=== PATIENT | male | born 1945 | race Caucasian/White ===

== ENCOUNTER 2017-12-08 13:41 | Outpatient (RCR) | payer MEDICARE ==
[~2017-12-08] VITALS: Ht 177.8 cm; Wt 96.6 kg
[~2017-12-08 13:41] MED LIST: GLIP-137 PO; MET500 PO; NO RTN MEDS
--- NOTE | 2017-12-08 17:05 | Medical Nutrition Therapy ---
Nutrition Anthropometrics Height (Inches): 70 Weight (Pounds): 213 (stated) Phan Nutrition Score: Phan Nutrition Risk Score: Dietary Referral Nutrition Risk Factors: Nutrition Risk Comment: Nutrition/Food History Breakfast: cherios, milk, fruit, coffee with farzad creamer Lunch: skips or sandwich Dinner: meat, 1c starch, veg, 1c milk, 1/2c fruit` Snacks: 9:30 amd egg, sausage or waffel with honey Nutritional Education Nutrition Education Topic: Diabetic Nutrition Learning Readiness: Interested Teaching Methods: Discussion, Handout, Demonstration Response to Teaching: Verbalize understanding, Reinforcement needed Teaching Recipient: Patient Nutrition Counseling: Pt states concerned with high A1C and would like to get it conrolled. Pt is on glipizide, meformin, Lantus and novolog. Pt states usually doesn't take novolog as he didn't think since it was a small amount, it wouldn't do that much good. Discussed the action of his oral med and the difference between lantus and novolog. Encouraged pt to take his novolog with his meals. Discused glycemic reponse to CHO. Many of the CHO pt is eating has a high glycemic index. Reviewed quality vs quantitiy of CHO. Pt is interested in wt loss. Reviewed CHO counting vs plate method. Recommend pt limit CHO or 30-45gm/meal or ~ 1c /meal to assist with wt loss. Pt states he is planning to go to rec center 3X//week to help with wt loss. Pt made behavioural goals and support plan. Pt scheduled for [facility] classes. Nutrition Monitoring & Eval Nutritional Goals Comment: Pt set behavioural goal of 20# wt loss in 5 month with action steps of exercising minimum of 1 hr 3X/week and limiting CHO to 30-45gm/meal. RD Patient Assessment Time: 60 minutes Nutritional Comment: Provide 60 minutes diabetic education focusing on nutrion, action of insulin, behavioural goal and support plan. Copies To Copies to: JONATAN PISANO BETH Dec 08, 2017 17:05
--- NOTE | 2017-12-16 17:59 | Medical Nutrition Therapy ---
Nutrition Anthropometrics Height (Inches): 70 Weight (Pounds): 213 (stated) Phan Nutrition Score: Phan Nutrition Risk Score: Dietary Referral Nutrition Risk Factors: Nutrition Risk Comment: Nutritional Education Nutrition Education Topic: Other Learning Barriers: Hx Of Non-Compliance Learning Readiness: Interested Teaching Methods: Discussion, Demonstration Response to Teaching: Verbalize understanding Teaching Recipient: Patient Nutrition Monitoring & Eval RD Patient Assessment Time: [address] Assessment Type: RD Education Nutritional Comment: Provide 60 minutes diabetic education focusing on nutrion, action of insulin, behavioural goal and support plan. 12/16/17 Pt has had T2DM for 15-20 years. Recent A1C 9.0%. Pt instructed on Living with Diabetes topics including foot care, manager long term care complications, exercise, hypoglycemia, sick day care, etc. Pt appears interested in diabetes topics and able to answer questions regarding topics covered. I personally spent a total of 60 minutes educating/counseling patient regarding diabetes self-management in a group setting. See education section and my note above for details. Copies To Copies to: JONATAN PISANO DIANNE Dec 16, 2017 17:59
--- NOTE | 2018-01-01 10:39 | Medical Nutrition Therapy ---
Nutritional Education Nutrition Education Topic: Diabetic Nutrition Learning Readiness: Interested Teaching Methods: Discussion, Handout, Demonstration Response to Teaching: Verbalize understanding Teaching Recipient: Patient Nutrition Counseling: Provided group diabetes education on nutrition. Reviewed: process of digestion; function of CHO, protein and fat; glycemic index; reading labels, portion sizes; heart healthy intake; eating out, alcohol. Nutrition Monitoring & Eval RD Patient Assessment Time: [address] Assessment Type: RD Education Nutritional Comment: Provide 60 minutes diabetic education in a group setting focusing on nutrion. 4 Copies To Copies to: JONATAN PISANO BETH Jan 01, 2018 10:39
== END 2018-01-12 ==
LOC: DIET 13:41
PROVIDERS: ATTEND Family Medicine
DX: Z71.3 Dietary counseling and surveillance (principal); E11.65 Type 2 diabetes mellitus with hyperglycemia; Z79.4 Long term (current) use of insulin; Z79.84 Long term (current) use of oral hypoglycemic drugs
CPT/HCPCS: G0108; G0109

== ENCOUNTER 2018-03-20 11:41 | Emergency (ER) | payer MEDICARE ==
[~2018-03-20 11:41] MED LIST changes: -ASPI-757 PO; -NOVOLOG SUBQ
--- NOTE | 2018-03-20 11:44 | ER Report ---
History and Physical Time Seen By MD: 11:43 HPI/ROS CHIEF COMPLAINT: feeling faint, nausea, possible heat exhaustion HISTORY OF PRESENT ILLNESS: This is a 72 year old male. He was brought to the ER by EMS. They evaluated when he was feeling faint. Was in the hot sun, was very sweaty. He felt dizzy and felt like he might pass out. No chest pain or heart palpitations. He did have some mild shortness of breath, but feels okay now. Had nausea, but no vomiting. He has not had much to eat or drink today. He is insulin dependent diabetic, and blood sugar was 160 in the field. No fevers or chills. No cough. Normal vision now, but did have some blurry vision during the event. No headache. No abdominal pain. REVIEW OF SYSTEMS: As above. Allergies: Coded Allergies: pseudoephedrine (Verified Allergy, Intermediate, ANXIETY, 03/20/18) Home Meds Reported Medications Insulin Aspart (NOVOLOG) 100 Unit/Ml Soln, 100 UNIT SUBQ 03/20/18 Aspirin (ASPIRIN) 325 Mg Tablet, 325 MG PO DAILY, TAB 03/20/18 Metformin Hcl (Glucophage) 500 Mg Tab, 500 MG PO BIDBS, #60 0 Refills 09/29/10 Glipizide (Glipizide) 10 Mg Tablet, 5 MG PO DAILY, #30 0 Refills 09/29/10 Reviewed Nurses Notes: Yes Hx Substance Use Disorder: No Hx Alcohol Use: Yes (RARELY) Constitutional Vital Sign - Last 24 Hours 03/20/18 03/20/18 03/20/18 03/20/18 11:42 11:42 12:00 12:28 Temp 98.0 Pulse 69 Resp 18 15 B/P (MAP) 110/70 113/69 (84) 131/74 (93) Pulse Ox 97 98 O2 Delivery Nasal Cannula O2 Flow Rate 2.0 03/20/18 03/20/18 03/20/18 12:30 12:33 12:37 Pulse 74 Resp 21 B/P (MAP) 138/82 (100) 124/69 (87) Pulse Ox 96 Physical Exam General Appearance: The patient is alert. No acute distress. Eyes: Pupils are equal, round. No pallor, injection or icterus. ENT: Mucous membranes are moist. Normal oral mucosa. Posterior oropharynx is normal. Neck: Supple and non tender. Respiratory: Lungs are clear to auscultation. Cardiovascular: Regular rate and rhythm. No murmurs, gallops or rubs. Normal capillary refill. No edema. Gastrointestinal: Abdomen is soft and non tender. Nondistended. Normal active bowel sounds. Neurological: Alert and oriented x3. Cranial nerves II through XII show no acute deficits on my exam. No focal neurologic deficits in the extremities. Skin: Warm and diaphoretic. No rashes. Musculoskeletal: Extremities are nontender. Full range of motion. No tenderness in palpation of the cervical, thoracic and lumbar spine. DIFFERENTIAL DIAGNOSIS: After history and physical exam, differential diagnosis was considered for a patient with near-syncope, no chest pain, mild shortness of breath with nausea. Blood sugars were normal. This appears likely heat exhaustion but will need to look for acute coronary syndrome as well. He is feeling much better after the normal saline started by EMS. Medical Decision Making Data Points Result Diagram: 03/20/18 1137 03/20/18 1137 Laboratory Hematology Test 03/20/18 11:37 Red Blood Count 5.95 M/uL (4.00-5.60) Mean Corpuscular Volume 87.6 fL (80.0-96.0) Mean Corpuscular Hemoglobin 29.8 pg (26.0-33.0) Mean Corpuscular Hemoglobin Concent 34.0 g/dL (32.0-36.0) Red Cell Distribution Width 13.5 % (11.5-14.5) Mean Platelet Volume 9.3 fL (7.2-11.1) Neutrophils (%) (Auto) 59.1 % (39.4-72.5) Lymphocytes (%) (Auto) 26.8 % (17.6-49.6) Monocytes (%) (Auto) 9.3 % (4.1-12.4) Eosinophils (%) (Auto) 3.6 % (0.4-6.7) Basophils (%) (Auto) 1.2 % (0.3-1.4) Nucleated RBC Relative Count (auto) 0.1 /100WBC Neutrophils # (Auto) 4.8 K/uL (2.0-7.4) Lymphocytes # (Auto) 2.2 K/uL (1.3-3.6) Monocytes # (Auto) 0.8 K/uL (0.3-1.0) Eosinophils # (Auto) 0.3 K/uL (0.0-0.5) Basophils # (Auto) 0.1 K/uL (0.0-0.1) Nucleated RBC Absolute Count (auto) 0.00 K/uL Sodium Level 139 mmol/L (137-145) Potassium Level 4.7 mmol/L (3.5-5.0) Chloride Level 101 mmol/L (98-107) Carbon Dioxide Level 24 mmol/L (22-30) Blood Urea Nitrogen 18 mg/dl (9-21) Creatinine 1.20 mg/dl (0.66-1.25) Glomerular Filtration Rate Calc 59.9 Random Glucose 259 mg/dl (75-110) Calcium Level 8.9 mg/dl (8.4-10.2) Total Bilirubin 0.5 mg/dl (0.2-1.3) Aspartate Amino Transf (AST/SGOT) 28 U/L (0-35) Alanine Aminotransferase (ALT/SGPT) 35 U/L (0-56) Alkaline Phosphatase 76 U/L (0-126) Troponin I < 0.012 ng/ml Total Protein 7.8 g/dl (6.3-8.2) Albumin 4.4 g/dl (3.5-5.0) Chemistry Test 03/20/18 11:37 White Blood Count 8.1 k/uL (4.5-11.0) Red Blood Count 5.95 M/uL (4.00-5.60) Hemoglobin 17.7 g/dL (14.0-18.0) Hematocrit 52.1 % (42.0-52.0) Mean Corpuscular Volume 87.6 fL (80.0-96.0) Mean Corpuscular Hemoglobin 29.8 pg (26.0-33.0) Mean Corpuscular Hemoglobin Concent 34.0 g/dL (32.0-36.0) Red Cell Distribution Width 13.5 % (11.5-14.5) Platelet Count 242 K/uL (150-450) Mean Platelet Volume 9.3 fL (7.2-11.1) Neutrophils (%) (Auto) 59.1 % (39.4-72.5) Lymphocytes (%) (Auto) 26.8 % (17.6-49.6) Monocytes (%) (Auto) 9.3 % (4.1-12.4) Eosinophils (%) (Auto) 3.6 % (0.4-6.7) Basophils (%) (Auto) 1.2 % (0.3-1.4) Nucleated RBC Relative Count (auto) 0.1 /100WBC Neutrophils # (Auto) 4.8 K/uL (2.0-7.4) Lymphocytes # (Auto) 2.2 K/uL (1.3-3.6) Monocytes # (Auto) 0.8 K/uL (0.3-1.0) Eosinophils # (Auto) 0.3 K/uL (0.0-0.5) Basophils # (Auto) 0.1 K/uL (0.0-0.1) Nucleated RBC Absolute Count (auto) 0.00 K/uL Glomerular Filtration Rate Calc 59.9 Calcium Level 8.9 mg/dl (8.4-10.2) Total Bilirubin 0.5 mg/dl (0.2-1.3) Aspartate Amino Transf (AST/SGOT) 28 U/L (0-35) Alanine Aminotransferase (ALT/SGPT) 35 U/L (0-56) Alkaline Phosphatase 76 U/L (0-126) Troponin I < 0.012 ng/ml Total Protein 7.8 g/dl (6.3-8.2) Albumin 4.4 g/dl (3.5-5.0) EKG/Imaging EKG Interpretation 12 lead EKG: Rhythm: normal sinus rhythm, rate 70 [place]: normal QRS: Right bundle branch block, left posterior fascicular block ST segments: Changes associated with the blocks but no other signs of ST elevation or depression noted. ED Course/Re-evaluation Clinical Indication for ER IV: Hydration, IV Access ED Course [place] somewhat better after a liter of saline from EMS. Orthostatic vital signs showed BP drop with standing, but pulse is stable. Improved after 2nd liter of normal saline. Labs are unremarkable. Decision to Disposition Date: Mar 20, 2018 Decision to Disposition Time: 14:23 Depart Departure Latest Vital Signs Vital Signs Date Time Temp Pulse Resp B/P (MAP) Pulse Ox O2 Delivery O2 Flow Rate FiO2 03/20/18 12:37 124/69 (87) 7/14/18 12:30 74 21 96 03/20/18 11:42 98.0 Nasal Cannula 03/20/18 11:42 2.0 Impression: Primary Impression: Dehydration Additional Impression: Orthostatic hypotension Condition: Improved Disposition: HOME OR SELF-CARE Patient Instructions: Dehydration (ED) Additional Instructions: Rest and increase fluid intake over the next few days. No other changes at this time. Problem Qualifiers CALIN CORONADO MD Mar 20, 2018 11:43
[2018-03-20] MEDS ORDERED: EMS NS 0.9%(*) 1000 ML BAG 1,000 ML IV ONE (11:45)
[2018-03-20] MEDS ORDERED: NOVOLOG SUBQ (11:47)
[2018-03-20] MEDS ORDERED: ASPI-757 PO (11:47)
[2018-03-20 11:56] LABS: PLATELET COUNT, AUTOMATED 242 K/uL (150-450)
--- NOTE | 2018-03-20 12:22 | EKG ---
FACILITY: [facility] PATIENT NAME: ROYAL AC : [id number] MR: [id number]: [id number] EXAM DATE: ORDERING PHYSICIAN: CALIN CORONADO TECHNOLOGIST: ZEENAT Coyne Reason : Blood Pressure : / mmHG Vent. Rate : 070 BPM Atrial Rate : 070 BPM P-R Int : 178 ms QRS Dur : 144 ms QT Int : 428 ms P-R-T Axes : 056 111 065 degrees QTc Int : 462 ms Normal sinus rhythm Right bundle branch block Left posterior fascicular block Bifascicular block Abnormal ECG No previous ECGs available Confirmed by ISMAEL BUTTERFIELD ([id number] on 03/20/2018 6:56:28 PM Referred By: CLIFF Confirmed By:ISMAEL BUTTERFIELD
[2018-03-20 12:37] VITALS: BP 124/69
[2018-03-20] MEDS ORDERED: NS(*) 0.9% 1000 ML BAG 1,000 ML IV ONE (12:55)
== END 2018-03-20 14:40 | disposition home or self-care (01) ==
LOC: ER 11:47
DX: E86.0 Dehydration (principal); I95.1 Orthostatic hypotension; E11.9 Type 2 diabetes mellitus without complications
CPT/HCPCS: 84484; 85025; 93005; 96360; 96361; 99283; J7030; 82040; 82247; 82310; 82374; 82435; 82565; 82947; 84075; 84132; 84155; 84295; 84450; 84460; 84520

== ENCOUNTER → 2018-03-20 | Outpatient (CLI) | payer MEDICARE ==
[~2018-03-20] MED LIST changes: +ASPI-757 PO; +NOVOLOG SUBQ
== END ==
LOC: AMB 11:11
PROVIDERS: ATTEND Nurse Practitioner
DX: T67.0XXA Heatstroke and sunstroke, initial encounter (principal); Y92.830 Public park as the place of occurrence of the external cause
CPT/HCPCS: A0425; A0427